=== PATIENT | female | born 1985 | race Native Hawaiian/Other Pacific Islander ===

== ENCOUNTER → 2018-09-30 | Outpatient (CLI) | payer OTHER ==
--- NOTE | 2018-09-30 16:39 | US ---
EXAMINATION TYPE: US transvaginal DATE OF EXAM: 09/30/2018 COMPARISON: NE CLINICAL HISTORY: Z97.[address] R10.2 pelvic pressure. TECHNIQUE: Transvaginal (TV) Transvaginal sonographic images were done, patient unable to well fill bladder. Date of LMP: 09/25/18 EXAM MEASUREMENTS: Uterus: 7.9 x 3.3 x 5.1 cm Endometrial Stripe: 0.2 cm Right Ovary: 3.2 x 1.9 x 1.9 cm Left Ovary: 2.8 x 2.1 x 2.1 cm 1. Uterus: 7.9 x 3.3 x 5.1cm 2. Endometrium: Free fluid noted at 1mm 3. Right Ovary: wnl 4. Left Ovary: There is a 1.3 cm simple cyst on the left ovary. This could be followed in 6 weeks. 5. Bilateral Adnexa: wnl 6. Posterior cul-de-sac: wnl IMPRESSION: 1. IUD within the endometrial canal. 2. Minimal free fluid. 3. Follicles on the right ovary. 4. Left ovarian cyst which appears simple measuring 1.3 cm is present. Follow-up can be performed.
== END | disposition home or self-care (01) ==
LOC: RADUSWWP 10:34
PROVIDERS: ATTEND Obstetrics & Gynecology
DX: N83.202 Unspecified ovarian cyst, left side (principal); Z97.5 Presence of (intrauterine) contraceptive device
CPT/HCPCS: 76830

== ENCOUNTER 2018-10-27 08:44 | Day surgery (SDC) | payer OTHER ==
[2018-10-25 10:20] VITALS: BMI 30.2
[~2018-10-27 08:44] MED LIST: DEXAMETHASONE SOD PHOSPHATE 10 MG/ML 1 ML VIAL IV ONE; HYDROmorphone 1 MG/ML 1 ML SYRINGE IVP PRN; LACTATED RINGERS 1,000 ML IV SCH; LIDOCAINE 1% 20 ML VIAL (10MG/ML) FOR IV START INTRADERMA PRN; ONDANSETRON 4 MG/2 ML VIAL IVP ONE; SCOPOLAMINE 1.5MG/72HR PATCH TRANSDERM ONE
[2018-10-27 09:32] VITALS: TEMP 97.7
--- NOTE | 2018-10-27 12:01 | P.GSHP ---
History of Present Illness H&P Date: 10/27/18 Chief Complaint: Screening colonoscopy, family history of colon cancer [id number] female who presents today for initial screening colonoscopy. Patient has a strong family history of colon cancer with her father having colon cancer. She denies any significant GI complaints. Past Medical History Past Medical History: No Reported History Additional Past Medical History / Comment(s): Hx gastritis History of Any Multi-Drug Resistant Organisms: None Reported Past Surgical History: No Surgical Hx Reported Additional Past Surgical History / Comment(s): Dilation and curettage Past Anesthesia/Blood Transfusion Reactions: No Reported Reaction Smoking Status: Never smoker - Past Family History Father Family Medical History: Cancer Additional Family Medical History / Comment(s): Colon CA Medications and Allergies Home Medications Medication Instructions Recorded Confirmed Type Fexofenadine/Pseudoephedrine 1 tab PO DAILY PRN 10/27/18 10/27/18 History [Carolina-D 24 Hour Tablet] Allergies Allergy/AdvReac Type Severity Reaction Status Date / Time No Known Allergies Allergy Verified 10/27/18 08:57 Surgical - Exam Vital Signs Temp Pulse Resp BP Pulse Ox 97.7 F 73 16 118/76 98 10/27/18 09:10 10/27/18 09:10 10/27/18 09:10 10/27/18 09:10 10/27/18 09:10 - General well developed, no distress - Eyes PERRL - ENT normal pinna - Neck no masses - Respiratory normal expansion - Cardiovascular Rhythm: regular - Abdomen Abdomen: soft, non tender Assessment and Plan Assessment: We'll perform screening colonoscopy.
--- NOTE | 2018-10-27 12:15 | P.OP ---
Date of Procedure: 10/27/18 Preoperative Diagnosis: Screening colonoscopy Family history of colon cancer Postoperative Diagnosis: Normal colon Procedure(s) Performed: Colonoscopy Anesthesia: MAC Surgeon: Shahab Prara Pathology: none sent Condition: stable Disposition: PACU Description of Procedure: PROCEDURE: The patient was placed on the endoscopy table in the lateral position. Digital rectal examination was performed which revealed no abnormalities. Flexible colonoscope was then placed in the patient's anus and passed throughout the entire colon. The ileocecal valve was visualized. The cecum, ascending, transverse, descending and sigmoid colon were normal. The rectum was normal as well. There were no masses, polyps or diverticula noted in the entire colon. SUMMARY OF FINDINGS: Normal colonoscopy.
[2018-10-27 12:24] VITALS: RESP 14
[2018-10-27 13:16] VITALS: BP 113/70; PULSE 76
== END 2018-10-27 13:18 | disposition home or self-care (01) ==
LOC: ORWHC2ENDO 08:44
PROVIDERS: ATTEND Surgery
DX: Z12.11 Encounter for screening for malignant neoplasm of colon (principal); Z80.0 Family history of malignant neoplasm of digestive organs; Z91.09 Other allergy status, other than to drugs and biological substances; Z79.899 Other long term (current) drug therapy

== ENCOUNTER → 2020-06-03 | Outpatient (CLI) | payer OTHER ==
[2020-06-03 14:20] LABS: Basophils # (A) 0.1 k/uL (0-0.2); Basophils % (A) 1 %; Eosinophils # (A) 0.2 k/uL (0-0.7); Eosinophils % (A) 2 %; HCT 41.6 % (34.0-46.0); HGB 13.6 gm/dL (11.4-16.0); Lymphocytes # (A) 2.5 k/uL (1.0-4.8); Lymphocytes % (A) 26 %; MCH 29.4 pg (25.0-35.0); MCHC 32.8 g/dL (31.0-37.0); MCV 89.7 fL (80.0-100.0); Mean Platelet Volume 7.4; Monocytes # (A) 0.4 k/uL (0-1.0); Monocytes % (A) 5 %; Neutrophils # (A) 6.4 k/uL (1.3-7.7); Neutrophils % (A) 66 %; Platelet Count 233 k/uL (150-450); RBC 4.64 m/uL (3.80-5.40); RDW 12.4 % (11.5-15.5); WBC 9.8 k/uL (3.8-10.6)
== END | disposition home or self-care (01) ==
LOC: LABPAT 13:29
PROVIDERS: ATTEND Obstetrics & Gynecology
DX: Z01.818 Encounter for other preprocedural examination (principal)
CPT/HCPCS: 36415; 85025

== ENCOUNTER 2020-06-11 06:20 | Day surgery (SDC) | payer OTHER ==
[2020-06-07 10:20] VITALS: BMI 31.7
--- NOTE | 2020-06-08 09:32 | P.HPOB ---
History of Present Illness H&P Date: 06/08/20 Chief Complaint: Retained IUD Patient is a 34-year-old female with a Mirena IUD that the strings were unable to be visualized I was unable to grasp it in the office. Therefore she is scheduled for an exam under anesthesia with possible hysteroscopy and replacement of IUD with Kyleena. QUESTIONS are answered for risks and benefits including bleeding infection perforation of the uterus are explained in detail possible need for other surgery. On physical exam vital signs are stable and afebrile. Heart regular, lungs clear, extremities without pain. Abdomen soft and nontender pelvic exam is otherwise unremarkable. Assessment retained IUD. Plan exam under anesthesia with removal and replacement of IUD. Past Medical History Past Medical History: Asthma, GERD/Reflux, Osteoarthritis (OA) Additional Past Medical History / Comment(s): Hx gastritis History of Any Multi-Drug Resistant Organisms: None Reported Past Surgical History: No Surgical Hx Reported Additional Past Surgical History / Comment(s): Dilation and curettage Past Anesthesia/Blood Transfusion Reactions: No Reported Reaction Smoking Status: Never smoker - Past Family History Father Family Medical History: Cancer Additional Family Medical History / Comment(s): Colon CA Medications and Allergies Home Medications Medication Instructions Recorded Confirmed Type Fexofenadine/Pseudoephedrine 1 tab PO DAILY PRN 10/27/18 06/06/20 History [Carolina-D 24 Hour Tablet] Allergies Allergy/AdvReac Type Severity Reaction Status Date / Time No Known Allergies Allergy Verified 06/06/20 15:54 Exam Osteopathic Statement: *. No significant issues noted on an osteopathic structural exam other than those noted in the History and Physical/Consult.
[~2020-06-11 06:20] MED LIST changes: +HYDROmorphone 0.5 MG/0.5 ML SYRINGE IVP PRN; -HYDROmorphone 1 MG/ML 1 ML SYRINGE IVP PRN; -LIDOCAINE 1% 20 ML VIAL (10MG/ML) FOR IV START INTRADERMA PRN; +MIDAZOLAM 2 MG/2 ML VIAL IV PRN; +Pre Op ABX Message 1 EACH MISC MISCELLANE ONE
[2020-06-11] MEDS ORDERED: ONDANSETRON 4 MG/2 ML VIAL ONE (06:43)
[2020-06-11] MEDS ORDERED: fentaNYL (PF) 50 MCG/ML 2 ML AMP ONE (07:47)
[2020-06-11] MEDS ORDERED: LIDOCAINE 1% INJ 10MG/ML (20 ML MDV) ONE (07:47)
[2020-06-11] MEDS ORDERED: KETOROLAC 30 MG/ML 1 ML VIAL ONE (07:47)
[2020-06-11] MEDS ORDERED: PROPOFOL 10 MG/ML 20 ML VIAL IV ONE (07:47)
[2020-06-11] MEDS ORDERED: MIDAZOLAM 2 MG/2 ML VIAL ONE (07:47)
--- NOTE | 2020-06-11 07:59 | P.OP ---
Date of Procedure: 06/11/20 Preoperative Diagnosis: Retained IUD Postoperative Diagnosis: Same Procedure(s) Performed: Exam under anesthesia with removal of IUD and replacement with new IUD Anesthesia: PINEDA RAGLAND Surgeon: Chico Patel Estimated Blood Loss (ml): 1 Pathology: none sent Condition: stable Disposition: same day Operative Findings: IUD removed and replaced Description of Procedure: Patient was taken to the operating suite where a general anesthetic was found be adequate. She was prepped and draped in normal sterile fashion and placed in the dorsal lithotomy position. Initially a weighted speculum was inserted into the vagina and the anterior lip of the cervix identified and grasped with an Allis clamp. Cervix was then dilated. [place] grasper was then used to grasp the IUD did take several attempts it was fairly well in the uterus and was not easy to remove even under anesthesia. Once removed however it was discarded and IUD was placed after sounding the uterus to 8 cm. 2 cm of string was left out. All instruments were then removed. Sponge, lap, needle counts were all correct 2. Patient was then taken to the recovery room in stable and satisfactory condition. Plan - Discharge Summary Discharge Rx Participant: No New Discharge Prescriptions: New Ibuprofen [Motrin] 600 mg PO Q6HR PRN #30 tab PRN Reason: Pain No Action Fexofenadine/Pseudoephedrine [Carolina-D 24 Hour Tablet] 1 tab PO DAILY PRN PRN Reason: Allergy symptoms Discharge Medication List Fexofenadine/Pseudoephedrine [[place]-D 24 Hour Tablet] 1 tab PO DAILY PRN 10/27/18 [History] Ibuprofen [Motrin] 600 mg PO Q6HR PRN #30 tab 06/11/20 [Rx] Follow up Appointment(s)/Referral(s): Chico Patel DO [Doctor of Osteopathic Medicine] - 6 Weeks Activity/Diet/Wound Care/Special Instructions: No heavy lifting limited stairs and driving today, pelvic rest today. Call for any high temperatures, heavy bleeding or severe pain Discharge Disposition: HOME SELF-CARE
[2020-06-11 08:20] VITALS: TEMP 96.9
[2020-06-11 09:56] VITALS: BP 103/65; PULSE 61; RESP 18
== END 2020-06-11 10:00 | disposition home or self-care (01) ==
LOC: OR 06:20
PROVIDERS: ATTEND Obstetrics & Gynecology
DX: Z30.433 Encounter for removal and reinsertion of intrauterine contraceptive device (principal); J45.909 Unspecified asthma, uncomplicated; K21.9 Gastro-esophageal reflux disease without esophagitis; M19.90 Unspecified osteoarthritis, unspecified site; J42 Unspecified chronic bronchitis; Z79.899 Other long term (current) drug therapy; Z87.19 Personal history of other diseases of the digestive system; Z98.890 Other specified postprocedural states; Z80.0 Family history of malignant neoplasm of digestive organs
CPT/HCPCS: 81025; 58301; 58300; J2250; J1100; J2405; J2001; J3010; J1885; J2704

== ENCOUNTER → 2020-10-26 | Outpatient (CLI) | payer OTHER ==
--- NOTE | 2020-10-26 14:31 | MR ---
EXAMINATION TYPE: MR wrist LT wo con DATE OF EXAM: 10/26/2020 COMPARISON: None HISTORY: Lt wrist pain Multiplanar multiecho imaging of the left wrist was performed with no contrast. Distal radius and ulna appear intact. The carpal bones are intact. There is a trilobed 14 x 9 x 19 mm cyst on the anterior lateral aspect of the distal radius. This is consistent with large synovial cys t. There is 7 mm cystic fluid collection also at the anterior aspect of the proximal triquetrum. The flexor tendons appear intact. I see no bony destructive process. There is no evidence of a fracture. Extensor tendons are intact. There is no evidence of bone edema. Visualized metacarpals are intact. J oint spaces are fairly normal. The triangular cartilage appears intact. IMPRESSION: Cystic fluid collections as above consistent with synovial cysts at the radiocarpal joint and the uln ar carpal joint. No fracture.
== END | disposition home or self-care (01) ==
LOC: RADMRIMAIN 09:43
PROVIDERS: ATTEND Orthopaedic Surgery
DX: M67.834 Other specified disorders of tendon, left wrist (principal)